=== PATIENT | male | born 1960 | race Caucasian/White ===

== ENCOUNTER 2020-12-08 13:08 | Emergency (ER) | payer BC, SELFPAY ==
[2020-12-08 13:09] VITALS: BP 161/91; PULSE 84; RESP 15; TEMP 36.4; O2SAT 98; BMI 35.2
--- NOTE | 2020-12-08 13:24 | ED.VIS.BACK ---
HPI History of Present Illness Chief Complaint: Back Detail of Chief Complaint: Back pain for 2 to 3 weeks Informant: patient Onset/Context/Timing Quality: Dull and Aching Current Severity: 01/06 Worsened by: improves with Movement Relieved by: Nothing Narrative Narrative: Patient presents to the emergency department complaint of back pain that he said for several weeks. Patient states that he was seen at [facility] for this and then also was seen by a back surgeon yesterday Dr. Carver. Patient states that on his way home from the back doctor's office he slipped and was able to catch himself and think much of it but developed more pain since that time. He has had no direct trauma. He denies any radiation to his legs. He denies weakness in extremities. He denies change in bowel or bladder function. Pain is mostly on the left lower back. Patient denies urinary symptoms. He denies hematuria. Patient currently on prednisone. Patient had been taken Advil and was getting some mild relief with that. 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 Patient has had similar pains in the past and intermittently will have exacerbations of this pain. [facility] Medical History (Updated 12/08/20 @ 13:[address] Leonarda Jeffers, ) Hodgkins disease Home Medications famotidine 20 mg tablet ea PO 12/07/20 [History Last Taken Unknown] levothyroxine 50 mcg tablet ea PO 12/07/20 [History Last Taken Unknown] orphenadrine citrate 100 mg tablet,extended release mg PO 12/07/20 [History Last Taken Unknown] prednisone 20 mg tablet ea PO 12/07/20 [History Last Taken Unknown] hydrocodone-acetaminophen 2 tab PO Q6H PRN 4 Days #14 tab 12/08/20 [Rx Last Taken Unknown] orphenadrine citrate 100 mg PO BID #20 tab 12/08/20 [Rx Last Taken Unknown] Allergy/AdvReac Type Severity Reaction Status Date / Time NSAIDS (Non-Steroidal Allergy Unknown unsure. Verified 12/08/20 13:09 Anti-Inflamma bee venom protein (honey bee) AdvReac Severe swelling Verified 12/08/20 13:09 Social History (Updated 12/07/20 @ 11:13 by Natalie Heaton) Smoking Status: Current some day smoker tobacco type: cigars per week: 1 Tobacco: How many years used: 30 alcohol intake: current alcohol intake frequency: a few times a week ROS ROS ED Constitutional Constitutional ED: Reports systems reviewed and no addt'l complaints, except as documented; Denies body ache(s), change in weight or chills Eyes Eyes: Denies acute decrease in peripheral vision, change in vision, double vision or loss of vision ENT ENT ED: Reports none; Denies ear pain, lip swelling, loss taste/smell, neck pain, otalgia or sore throat Cardiovascular Cardiovascular: Reports none; Denies abdominal pain, chest pain with activity, leg edema, lightheadedness, palpitations, rapid heart rate or syncope Respiratory/Chest Respiratory/Chest: Reports none; Denies change in mental status, dry cough, dyspnea, hemoptysis, shortness of breath at rest or shortness of breath with exertion Gastrointestinal Gastrointestinal: Reports none; Denies abdominal pain, change in stool character, diarrhea, hematemesis, hematochezia, melena, rectal bleeding or vomiting Genitourinary Genitourinary ED: Reports none; Denies abdominal discomfort, anuria, dysuria, genital pain or polyuria Musculoskeletal Musculoskeletal: Reports back pain Integumentary Reports none; Denies abscess or rash Neurologic Neurologic: Reports none; Denies abnormal gait, confusion, focal weakness, frequent falls, headache(s), loss of vision, numbness, paresthesias, radicular pain, vertigo or weakness Psychiatric Psychiatric: Reports systems reviewed and no addt'l complaints, except as documented and none; Denies behavioral changes, confusion, difficulty concentrating, hallucinations, suicidal ideation, tactile hallucinations or visual hallucinations Endocrine Endocrinology: Denies none, cold intolerance, excessive sweating, fatigue or heat intolerance Hematologic/Lymphatic Hematologic/Lymphatic: Reports none; Denies anemia, easy bleeding or easy bruising Allergic/Immunologic Allergic/Immunologic ED: Denies as per HPI, none, lip swelling, mouth swelling, throat swelling, tongue swelling or hives EXAM Physical Exam Const Vital Signs: 12/08/20 13:09 Temperature 97.6 F L Temperature Source Temporal Pulse Rate 84 Respiratory Rate 15 Blood Pressure 161/91 H Blood Pressure Mean 114 Pulse Ox 98 Oxygen Delivery Method Room Air Positive well nourished and well developed General Appearance ED: well developed and NAD HEENT Reports TM's clear and moist mucous membranes normocephalic and atraumatic; Negative for trauma or tenderness Tympanic Membrane ED: Yes TM's clear Eyes PERRL and EOMs intact bilaterally General Eye ED: Negative for pale conjunctiva or scleral icterus Neck no lymphadenopathy, supple and no JVD General: Negative for tenderness Chest Wall inspection of chest normal and palpation of chest normal Chest: Negative for tenderness Resp normal respiratory effort and clear to auscultation bilaterally Effort and Inspection: Negative for respiratory distress or pain with movement Auscultation: Negative for rhonchi, wheezes or diminished lung sounds Cardio regular rate, regular rhythm, S1 normal heart sound, S2 normal heart sound and no murmurs Peripheral Pulses: pulses 2+ throughout GI normal to inspection, nondistended, normoactive bowel sounds, soft to palpation, non-tender, non-distended and no masses Back/Spine no CVA tenderness and no thoracic nor lumbar tenderness Back/Spine Narrative: Patient has tenderness mostly over the left lumbar paraspinal musculature. Patient has negative straight leg raises. Deep tendon reflexes are plus 2 out of 4 bilaterally at the patella and Achilles. Patient has normal L5 extension bilaterally. Patient has normal sensation to light touch. Extremity normal to inspection General Extremety ED: Negative for edema General Extremity: Negative for edema Neuro oriented x3, CN's II-XII intact bilaterally, no sensory deficits noted and gait normal Sensorium / Orientation: awake, alert, oriented to person, oriented to place and oriented to time Motor Exam: strength 5/5 throughout and strength abnormal Psych mental status grossly normal Skin no rashes or lesions noted and no wounds MDM MDM MDM Narrative Medical decision making narrative: At this point I will feel any imaging is indicated. Patient had x-rays yesterday and 2 weeks ago. Patient will be scheduled as an outpatient have an MRI at the request of his back doctor. Patient will be given a prescription for Norflex and [place] for severe pain. He will be given off work for several days. Patient advised to return if worsening pain, weakness in extremities, change in bowel or bladder function, or condition should worsen anyway. Discharge Plan Triage Chief Complaint: Back ED Provider: Leonarda Jeffers Dx/Rx/DC Orders Clinical Impression: Low back pain Instructions: ED Back Spasm, No Trauma Prescriptions: New orphenadrine citrate 100 mg tablet extended release 100 mg PO BID Qty: 20 RF: 0 hydrocodone-acetaminophen 5-325 mg tablet 2 tab PO Q6H PRN (Reason: pain) 4 Days Qty: 14 RF: 0 No Action orphenadrine citrate 100 mg tablet extended release PO RF: 0 famotidine 20 mg tablet PO RF: 0 prednisone 20 mg tablet PO RF: 0 levothyroxine 50 mcg tablet PO RF: 0 Primary Care Provider: Frida Britton Referrals: Frida Britton, [Primary Care Provider] - Activity Restrictions/Additional Instructions: Your follow-up appointment with Dr. Carver and schedule your back MRI. Disposition Disposition: Home, self care
== END 2020-12-08 13:45 | disposition home or self-care (01) ==
LOC: ED 13:41
PROVIDERS: Emergency Provider Emergency Medicine; PCP Internal Medicine
DX: M54.5 Low back pain (principal); F17.290 Nicotine dependence, other tobacco product, uncomplicated
CPT/HCPCS: 99281; 99282

== ENCOUNTER → 2021-01-03 11:13 | Outpatient (CLI) | payer BC, SELFPAY ==
[2020-12-08 13:09] VITALS: BMI 35.2
--- NOTE | 2021-01-03 11:16 | MRI_ITS ---
STUDY: MRI LUMBAR SPINE WITHOUT CONTRAST REASON FOR EXAM: Male, 60 years old. pain TECHNIQUE: Standardized fat and water weighted pulse sequences were obtained in the sagittal and axial planes. COMPARISON: None FINDINGS: There is a transitional morphology. Vertebral bodies numbering is uncertain. Confirmation of Lumbar numbering before surgical intervention is recommended. Normal lumbar lordosis. There is no substantial scoliosis. Normal conus medullaris that terminates at the T12/L1. L1-2: There is minimal disc space narrowing and endplate spondylosis. There is no significant disc herniation, central canal or foraminal stenosis. L2-3: There is moderate disc space narrowing and endplates spondylosis. Mild disc bulge and facet arthropathy without significant central canal stenosis. Mild right and moderate left foraminal stenosis. L3-4: There is moderate disc space narrowing and endplates spondylosis. Mild disc bulge and facet arthropathy without significant central canal stenosis. Mild right and moderate left foraminal stenosis. L4-5: There is moderate disc space narrowing and endplates spondylosis. Moderate disc bulge and facet arthropathy without significant central canal stenosis. Mild right and mild left foraminal stenosis. L5-S1: There is severe disc space narrowing and endplates spondylosis. Moderate disc osteophyte complex and foraminal arthropathy without significant central canal stenosis. Moderate right and moderate left foraminal stenosis. S1/S2: There is no significant disc herniation, spinal canal or foramina stenosis. Normal visualized sacral ala. MRI/Spine Lumbar (Routine) IMPRESSION: Transitional morphology. L2/L3: Moderate left foraminal stenosis. L3/L4: Moderate left foraminal stenosis. L5/S1: Moderate right and moderate left foraminal stenosis. Electronically Signed: Robinson Rodrigues MD at 9:49 EDT Tel , Service support ,
== END ==
PROVIDERS: PCP Internal Medicine; Referring Provider Orthopaedic Surgery; Visit Provider Orthopaedic Surgery
DX: M51.36 Other intervertebral disc degeneration, lumbar region (principal); M54.5 Low back pain
CPT/HCPCS: 72148